=== PATIENT | male | born 1980 | race Caucasian/White ===

== ENCOUNTER → 2019-11-29 15:19 | Outpatient (BNVA) | payer MEDICAID, SELFPAY | PROVIDERS: Family Provider Family Medicine; PCP Family Medicine; Visit Provider Family Medicine | DX: I10 Essential (primary) hypertension (principal) | CPT/HCPCS: 80048 ==

== ENCOUNTER → 2020-03-01 09:15 | Outpatient (BNVA) | payer MEDICAID, SELFPAY | PROVIDERS: Family Provider Family Medicine; PCP Family Medicine; Visit Provider Family Medicine | DX: F33.1 Major depressive disorder, recurrent, moderate (principal); I10 Essential (primary) hypertension; M62.830 Muscle spasm of back | CPT/HCPCS: 80048; 80061; 83721; 84402; 84403 ==

== ENCOUNTER 2020-04-04 11:50 | Outpatient (RCR) | payer MEDICAID, SELFPAY | END 2020-04-22 23:59 | disposition home or self-care (01) | LOC: MPT 11:50 | PROVIDERS: PCP Family Medicine; Referring Provider Family Medicine; Visit Provider Family Medicine | DX: G89.29 Other chronic pain (principal); M54.5 Low back pain; M54.9 Dorsalgia, unspecified | CPT/HCPCS: 97110; 97161; 97530 ==

== ENCOUNTER 2020-04-23 06:00 | Outpatient (RCR) | payer MEDICAID, SELFPAY | END 2020-05-22 23:59 | disposition home or self-care (01) | LOC: MPT 06:00 | PROVIDERS: PCP Family Medicine; Visit Provider Family Medicine | DX: G89.29 Other chronic pain (principal); M54.9 Dorsalgia, unspecified; M54.5 Low back pain | CPT/HCPCS: 97110; 97530 ==

== ENCOUNTER 2020-06-21 17:28 | Emergency (ER) | payer MEDICAID, SELFPAY ==
[2020-06-21 17:50] VITALS: BP 151/98; PULSE 107; RESP 16; TEMP 36.6; O2SAT 96; BMI 37.0
--- NOTE | 2020-06-21 17:55 | ECG_ITS ---
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 Measurements Intervals [place] Rate: 100 P: 51 HI: 142 QRS: 95 QRSD: 77 T: 51 QT: 336 QTc: 434 Interpretive Statements SINUS TACHYCARDIA BORDERLINE RIGHT AXIS DEVIATION [QRS AXIS > 90] POSSIBLE ANTERIOR MYOCARDIAL INFARCTION , OF INDETERMINATE AGE [30 ms Q WAVE IN V3/V4, OR R < 0.2 mV IN V4] No previous ECG available for comparison Electronically Signed On 06-22-2020 16:01:24 CDT by Benjamín Angela M.D. [id number]
--- NOTE | 2020-06-21 18:33 | CTR_ITS ---
PROCEDURE INFORMATION: Exam: CT Head Without Contrast Exam date and time: 06/21/2020 6:42 PM Age: 40 years old Clinical indication: Syncope and collapse; Additional info: Brown/injury TECHNIQUE: Imaging protocol: Computed tomography of the head without contrast. Radiation optimization: All CT scans at this facility use at least one of these dose optimization techniques: automated exposure control; mA and/or kV adjustment per patient size (includes targeted exams where dose is matched to clinical indication); or iterative reconstruction. COMPARISON: No relevant prior studies available. RADIATION DOSE METRICS: Total DLP (mGy-cm): 871.08 FINDINGS: Brain: Normal. No hemorrhage. Unremarkable white matter. No mass effect. Ventricles: Normal. No ventriculomegaly. Bones/joints: Unremarkable. No acute fracture. Sinuses: Visualized sinuses are unremarkable. No fluid levels. Mastoid air cells: Visualized mastoid air cells are well aerated. Soft tissues: Unremarkable. CT/CT head wo con* [id number] IMPRESSION: No acute intracranial abnormality. Radiation Dose CTDIVOL = (mGy): DLP = 871.08 (mGy-cm)
--- NOTE | 2020-06-21 18:37 | W.ED.SYNCOPE ---
HPI - Syncope General: Chief Complaint: Syncope Stated Complaint: syncope 13 hours ago Time Seen by Provider: 06/21/20 18:11 Source: patient Mode of arrival: ambulatory Limitations: no limitations History of Present Illness: HPI narrative: Benjamín is a nice 40-year-old male who comes in with a complaint of passing out. The patient stated that at 4 AM he got up to go to the bathroom tried to have a bowel movement but then got up and walked back to his bedroom and had a syncopal spell. He states he felt odd, diaphoretic and weak before it happened and then fell to the floor. He does not believe that he was out for very long. Because of this he went to [facility] and was evaluated there. He states that he was diagnosed with syncope and discharged home to follow-up but have a Holter monitor. The patient is specifically concerned about a stroke. He is concerned that since he has a headache and he hit his head this could be incidence of stroke. Patient denies any preceding chest pain, shortness of breath, palpitations or abdominal or back pain. Patient states that since this has happened he is felt tired and fatigued throughout the day. Associated symptoms: Deny abdominal pain, chest pain, fever(s), headache(s), lightheadedness, nausea or vertigo Review of Systems Const: Denies: fever(s), chills, body aches, fatigue, malaise or diaphoresis Eyes: Denies: change in vision, blurry vision, blind spots, photophobia, eye discharge or eye redness ENMT: Denies: throat pain, odynophagia, hoarseness, swelling of lips/tongue, oral sores, ear or mastoid pain, ear discharge, change in hearing or nasal discharge Card: Reports: syncope; Denies: chest pain, palpitations, irregular heart rhythm, edema, lightheadedness, pre-syncope, dyspnea on exertion or orthopnea Resp: Denies: dyspnea, productive cough, non-productive cough, wheezing, hemoptysis or chest congestion GI: Denies: abdominal pain, nausea, vomiting, hematemesis, coffee ground emesis, heartburn, diarrhea, constipation, GI cramping, hematochezia or melena : Denies: flank pain, dysuria, urinary frequency, urinary urgency or hematuria Musc: Denies: neck pain, back pain, extremity pain, extremity swelling, joint pain, joint swelling, joint redness, joint warmth or joint stiffness Skin/Breast: Denies: rash, pruritus, erythema, skin tenderness or jaundice Neuro: Denies: headache(s), numbness in extremities, weakness in extremities, sensory changes, lack of coordination, difficulty walking, dizziness, vertigo, confusion, Slurred speech present or seizure-like activity Saeed/Lymph: Denies: easy bruising, easy bleeding, petechiae, purpura or enlarged lymph nodes All/Imm: Denies: urticaria, throat swelling, tongue swelling, facial swelling or acute wheezing PFSH ED PFSH: Medical History Constipation Depression, major, recurrent, moderate Generalized anxiety disorder Hypertension Mild intellectual disabilities Mixed hyperlipidemia Post-traumatic stress disorder, chronic Statin intolerance Social History Smoking and tobacco status: current every day smoker cigarettes Packs smoked per day: 0.5 Quit status (tobacco): not considering quitting Second hand smoke exposure: No Alcohol intake: former Desire information about alcohol rehabilitation?: No Substance/Drug Use: never Desire information about substance/drug rehabilitation?: No History of recent travel: No Current gender identity: Male Physical Exam Const: COMMON NORMALS: no acute distress, patient oriented x3, no limitations, healthy appearing and well nourished GENERAL APPEARANCE: cooperative, well kempt and well developed HENMT: COMMON NORMALS: normocephalic, atraumatic, external ears normal, EAC's normal and Normal external nose present HEAD & SCALP: normal to inspection, normocephalic and atraumatic FACE & SINUS: normal facial exam and face symmetric NOSE: Normal external nose present and Normal nares present EXTERNAL EAR: Yes external ears normal EXTERNAL AUDITORY CANAL: EAC's normal MOUTH: Normal oral and palatal mucosa present, lip normal and tongue normal Eye: COMMON NORMALS: Equal, round and reactive pupils present and conjunctivae normal GENERAL EYE: appearance normal, both eyes and all related structures ALIGNMENT: Yes alignment normal PERIORBITAL: periorbital findings normal EYELID: eyelids normal CONJUNCTIVA: Yes conjunctivae normal SCLERA: sclerae normal PUPIL: Yes Equal, round and reactive pupils present Neck/C-Spine: COMMON NORMALS: full ROM, no lymphadenopathy, supple, no meningeal signs and no JVD GENERAL: Yes normal visual inspection and Yes trachea midline Chest: COMMONS NORMALS: normal inspection of the chest and normal palpation of entire chest wall Resp: COMMON NORMALS: normal respiratory effort, No retractions and No use of accessory muscles EFFORT & INSPECTION: Yes able to speak in complete sentences and Yes symmetric chest movement AUSCULTATION: no crackles, no rales, no rhonchi and no wheezes Cardio: COMMON NORMALS: no JVD, regular rate, regular rhythm, S1 normal heart sound present and S2 normal heart sound present RATE: regular rate RHYTHM: regular rhythm HEART SOUNDS: S1 normal heart sound present, S2 normal heart sound present, no click, no gallops, no murmurs, no rubs and abnormal split S2 GI: COMMON NORMALS: Soft to palpation and No hepatosplenomegaly present PALPATION: Yes Soft to palpation, No Tenderness to palpation present (GI), No Guarding due to palpation present (GI), No Rigid due to palpation, Yes No hepatosplenomegaly present, No Hernia present, No Palpable mass present and No Pulsatile mass present : COMMON NORMALS: Yes no CVA tenderness BLADDER/KIDNEY EXAM: Yes no CVA tenderness Back/Pelvis: COMMON NORMALS: no CVA tenderness, thoracic and lumbar spine normal to inspection, no thoracic nor lumbar tenderness and thoraco-lumbar ROM normal Extremity: COMMON NORMALS: normal to inspection, full ROM, capillary refill normal, no joint enlargement, no clubbing, cyanosis or edema and no calf tenderness Neuro: COMMON NORMALS: patient oriented x3, CN's II-XII intact bilaterally, moves all extremities, no focal motor deficits and no sensory deficits noted MENINGEAL SIGNS: Yes no meningeal signs SPEECH: speech normal Psych: COMMON NORMALS: mental status grossly normal, Normal thought process present, cooperative, normal affect, speech normal and activity/motor behavior normal APPEARANCE: Yes well kempt SPEECH: Yes normal speech THOUGHT PROCESS: Normal thought process present Skin: COMMON NORMALS: no rashes or lesions noted, turgor normal, no jaundice, no petechiae and no mottling GENERAL SKIN EXAM: no rashes or lesions noted and turgor normal Course Vital Signs: Vital signs: Vital Signs Temperature 97.8 F 06/21/20 17:50 Pulse Rate 75 06/21/20 20:44 Respiratory Rate 19 H 06/21/20 20:44 Blood Pressure 144/88 06/21/20 20:44 Pulse Oximetry 95 06/21/20 20:44 MDM - Syncope MDM Narrative: Medical decision making narrative: Benjamín is a nice 40-year-old male who comes in after a syncopal episode at 4 AM. Patient's been mostly asymptomatic throughout the day. He shows no chest pain or shortness of breath. His EKG shows no evidence of Dmnfr-Wepzxbmyt-Ryoie syndrome, obstructed AV pathway, Brugada syndrome, bifascicular blocks, left ventricular hypertrophy to suggest aortic stenosis or hypertrophic obstructive cardiomyopathy, Wrdn-Ozrtjh-Bkmnhl syndrome, epsilon waves or long or short QT syndrome. The patient was most concerned of whether he had had a stroke or not as he hurt his head when he fell. There is no evidence of stroke on his CT and his labs of been unremarkable except for a slightly elevated white count. Patient has no fever, no stiff neck, no cough or shortness of breath denies any abdominal pain or vomiting or diarrhea. Patient denies any urinary symptoms. Patient declines any further care as he knows his CT of his head is normal. He wants to go home. He does agree to return should his symptoms return or he develop any new symptoms. Lab Data: Attestation: I reviewed the patient's lab results. Labs: Lab Results 06/21/20 06/21/20 06/21/20 Range/Units 18:37 18:37 18:37 WBC 16.2 H (4.0-10.0) 10^3/ uL RBC 5.75 H (4.1-5.3) 10^6/u L Hgb 17.4 H (11.7-16.6) g/dL Hct 51.0 (42.0-52.0) % MCV 88.7 (80-94) fL MCH 30.3 (28.0-34.0) pg MCHC 34.1 (30.0-36.0) g/dL RDW 12.4 (12.1-15.1) % Plt Count 328 (130-400) 10^3/c mm MPV 10.0 (7.4-10.4) fL Neut % (Auto) 72.8 % Lymph % (Auto) 23.5 % [place] % (Auto) 2.6 % Eos % (Auto) 0.2 % Baso % (Auto) 0.5 % Neut # (Auto) 11.75 H (1.8-7.7) 10^3/u L Lymph # (Auto) 3.8 (0.8-4.8) 10^3/u L [place] # (Auto) 0.4 (0.2-0.9) 10^3/u L Eos # (Auto) 0.0 (0.0-0.8) 10^3/u L Baso # (Auto) 0.1 (0.0-0.1) 10^3/u L Nucleated RBC % (a uto) 0 % Nucleated RBCs # 0.0 /100WBC Sodium 137 (136-145) mmol/L Potassium 3.5 (3.5-5.1) mmol/L Chloride 99 (98-107) mmol/L Carbon Dioxide 25 (22-29) mmol/L Anion Gap 16.5 (5-19) BUN 12 (6-20) mg/dL Creatinine 1.1 (0.7-1.2) mg/dL GFR Calculation 73.4 L (90-130) mL/min Glucose 137 H (65-115) mg/dL Calculated Osmolal ity 282 L (285-295) mOsm/k g Calcium 10.3 (8.5-10.5) mg/dL Magnesium 2.2 (1.7-2.3) mg/dL Troponin T Baselin e 6 (0-15) ng/L EKG Data^: EKG 1: Attestation: I personally reviewed and interpreted this EKG as follows: EKG interpretation date: 06/21/20 EKG interpretation time: 18:29 Interpretation: Normal sinus rhythm at 100 beats a minute, no blocks, normal intervals. No acute ST-T wave changes. Discharge Plan Discharge Patient Disposition: Home Clinical Impression: Syncope Qualifiers: Syncope type: unspecified Qualified Code(s): R55 - Syncope and collapse Condition: Stable Prescriptions: No Action sertraline [Zoloft] 25 mg tablet 25 mg PO DAILY Qty: 30 RF: 2 potassium chloride 10 mEq tablet extended release 10 meq PO DAILY 30 Days Qty: 30 RF: 2 Aleve 220 mg Tablet 440 mg PO PRN RF: 0 clonidine HCl 0.1 mg tablet 0.2 mg PO BEDTIME RF: 0 hydrochlorothiazide 25 mg tablet 25 mg PO DAILY RF: 0 Discharge Orders: Discharge Order (Routine); Ordered 06/21/20 Ordered By: Rocio Soliman Referrals: Yaerlis Spears MD [Physician] - 1-3 days Elsa Tomlinson MD [Primary Care Provider] - 1-3 days Discharge Diet: Advance as tolerated Discharge Activity: Increase activity as tolerated Patient Instructions: Syncope (ED) Activity Restrictions/Additional Instructions: Please return to the ER immediately for any of the signs or symptoms listed on your discharge instruction sheets, worsening/changing of your symptoms, you are not getting better as quickly as expected, or for ANY other cause or concerns. Be certain to follow-up with Dr. Spears for recheck and for further evaluation and care. Return to the ER if you have another spell or you pass out. Discharge Date/Time: 06/21/20 20:51 Coding Level of Care Code ED Distribution Tech for Chg Fwd Exam Comprehensive
[2020-06-21 18:45] LABS: Basophils # 0.1 10^3/uL (0.0-0.1); Basophils % 0.5 %; Eosinophils % 0.2 %; Hemoglobin 17.4 g/dL (11.7-16.6); Lymphocytes # 3.8 10^3/uL (0.8-4.8); Lymphocytes % 23.5 %; Mean Corpuscular HGB Conc 34.1 g/dL (30.0-36.0); Mean Corpuscular Hemoglobin 30.3 pg (28.0-34.0); Mean Corpuscular Volume 88.7 fL (80-94); Monocytes # 0.4 10^3/uL (0.2-0.9); Monocytes % 2.6 %; Neutrophils # 11.75 10^3/uL (1.8-7.7); Neutrophils % 72.8 %; Nucleated Red Blood Cells % 0 %; Platelet Count 328 10^3/cmm (130-400); Red Blood Count 5.75 10^6/uL (4.1-5.3); Red Cell Distribution Width 12.4 % (12.1-15.1); White Blood Count 16.2 10^3/uL (4.0-10.0)
[2020-06-21 19:00] VITALS: BP 134/95; BP 151/90; BP 153/89; PULSE 101; PULSE 107; PULSE 111; RESP 17; O2SAT 97
[2020-06-21 19:01] LABS: Anion Gap 16.5 (5-19); Blood Urea Nitrogen 12 mg/dL (6-20); Calcium 10.3 mg/dL (8.5-10.5); Carbon Dioxide 25 mmol/L (22-29); Chloride 99 mmol/L (98-107); Glomerular Filtration Rate 73.4 mL/min (90-130); Glucose 137 mg/dL (65-115); Magnesium 2.2 mg/dL (1.7-2.3); Osmolality Calculated 282 mOsm/kg (285-295); Potassium 3.5 mmol/L (3.5-5.1); Sodium 137 mmol/L (136-145)
[2020-06-21 19:05] LABS: Troponin(5th) Baseline 6 ng/L (0-15)
[2020-06-21] MEDS: sodium chloride 0.9% 1,000 ML 999 ML IV (19:08)
[2020-06-21 19:30] VITALS: BP 131/74; PULSE 89; RESP 16; O2SAT 95
[2020-06-21 20:44] VITALS: BP 144/88; PULSE 75; RESP 19; O2SAT 95
== END 2020-06-21 20:51 | disposition home or self-care (01) ==
PROVIDERS: Emergency Medicine; Emergency Provider Emergency Medicine; PCP Family Medicine
DX: R55 Syncope and collapse (principal); I10 Essential (primary) hypertension; E78.2 Mixed hyperlipidemia; F17.210 Nicotine dependence, cigarettes, uncomplicated
CPT/HCPCS: 12345; 70450; 80048; 83735; 84484; 85025; 93005; 96360; 99283; 99284; J7030

== ENCOUNTER 2020-12-06 06:00 | Outpatient (RCR) | payer MEDICAID, SELFPAY | END 2020-12-23 23:59 | disposition home or self-care (01) | LOC: MPT 06:00 | PROVIDERS: PCP Family Medicine; Referring Provider Family Medicine; Visit Provider Family Medicine | DX: M54.9 Dorsalgia, unspecified (principal); G89.29 Other chronic pain | CPT/HCPCS: 97110; 97140; 97161; 97530 ==

== ENCOUNTER 2020-12-24 06:00 | Outpatient (RCR) | payer MEDICAID, SELFPAY | END 2021-01-20 23:59 | disposition home or self-care (01) | LOC: MPT 06:00 | PROVIDERS: PCP Family Medicine; Referring Provider Family Medicine; Visit Provider Family Medicine | DX: M54.9 Dorsalgia, unspecified (principal); G89.29 Other chronic pain | CPT/HCPCS: 97110; 97140; 97530 ==

== ENCOUNTER 2021-02-25 06:00 | Outpatient (RCR) | payer MEDICAID, SELFPAY | END 2021-03-22 23:59 | disposition home or self-care (01) | LOC: MPT 06:00 | PROVIDERS: PCP Family Medicine; Referring Provider Family Medicine; Visit Provider Family Medicine | DX: M54.9 Dorsalgia, unspecified (principal); G89.29 Other chronic pain | CPT/HCPCS: 97110; 97140; 97161; 97530 ==

== ENCOUNTER → 2021-03-05 15:10 | Outpatient (BNVA) | payer MEDICAID, SELFPAY | PROVIDERS: PCP Family Medicine; Visit Provider Family Medicine | DX: E78.2 Mixed hyperlipidemia (principal); I10 Essential (primary) hypertension; R73.9 Hyperglycemia, unspecified; Z13.1 Encounter for screening for diabetes mellitus; F33.1 Major depressive disorder, recurrent, moderate; F41.1 Generalized anxiety disorder; M54.5 Low back pain; E87.6 Hypokalemia | CPT/HCPCS: 80053; 80061; 83036 ==

== ENCOUNTER 2021-04-05 13:44 | Outpatient (CLI) | payer MEDICAID, SELFPAY ==
[2021-03-07 15:52] VITALS: BP 151/94; BMI 36.3
--- NOTE | 2021-04-05 15:15 | MR_ITS ---
WS: [id number] MRI LUMBAR SPINE NONCONTRAST HISTORY: M54.5 - Low back pain COMPARISON: None available. TECHNIQUE: Sagittal and axial multisequence imaging is submitted. Straightening of the normal cervical lordosis. Low signal on the posterior longitudinal ligament exte nding from the C2-3 disc level through C5-6 may be ossification of the posterior longitudinal ligamen t with mild encroachment upon the cervical canal. Mild straightening of the normal thoracic kyphosis. Mild straightening of the normal lumbar lordosis. There are 6 lumbar type vertebral bodies identified after identifying 7 cervical and 12 thoracic vert ebral bodies. The 6 lumbar type vertebral body will be designated as a lumbarized S1 segment. This nu mbering pattern will be important if surgery is contemplated in this patient. Conus terminates normally at L2. L1-L2: Normal. L2-L3: Mild annular disc bulge with a shallow central disc protrusion. Disc protrusion is contacting and causing mild displacement of the ventral thecal sac. No significant foraminal stenosis. L3-L4: Mild annular disc bulging and osteophytic ridging. L4-L5: Small thecal sac with mild facet arthritis. Mild narrowing of the foramen bilaterally. L5-S1: Mild annular disc bulging. Very shallow disc protrusion and annular fissure in the LEFT forame n. Mild bilateral foraminal stenosis. S1-S2: rudimentary disc without stenosis. MR/MR lumbar spine wo con* [id number] IMPRESSION: 1. There are 5 lumbar vertebral bodies. The S1 vertebral body appears lumbariz ed. This numbering pattern will be important if surgery is ever contemplated in this patient. 2. 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 3. Mild bilateral foraminal stenosis at L5-S1. 4. Mild bilateral foraminal stenosis at L4-5. 5. Central disc protrusion contacting the ventral thecal sac at L2-3.
== END 2021-04-05 13:45 | disposition home or self-care (01) ==
LOC: RADSHAW 13:49
PROVIDERS: PCP Family Medicine; Visit Provider Family Medicine
DX: M48.07 Spinal stenosis, lumbosacral region (principal); M48.061 Spinal stenosis, lumbar region without neurogenic claudication; M51.26 Other intervertebral disc displacement, lumbar region
CPT/HCPCS: 72148

== ENCOUNTER → 2021-04-23 10:36 | Outpatient (BNVA) | payer MEDICAID, SELFPAY ==
[2021-03-07 15:52] VITALS: BP 151/94; BMI 36.3
== END ==
PROVIDERS: PCP Family Medicine; Referring Provider Family Medicine; Visit Provider Anesthesiology Pain Medicine
DX: M54.5 Low back pain (principal); F17.210 Nicotine dependence, cigarettes, uncomplicated; Z79.891 Long term (current) use of opiate analgesic
CPT/HCPCS: 99205

== ENCOUNTER → 2021-05-10 12:51 | Outpatient (BNVA) | payer MEDICAID, SELFPAY ==
[2021-03-07 15:52] VITALS: BP 151/94; BMI 36.3
== END ==
PROVIDERS: PCP Family Medicine; Visit Provider Anesthesiology Pain Medicine
DX: M54.5 Low back pain (principal); F17.210 Nicotine dependence, cigarettes, uncomplicated
CPT/HCPCS: 62323; J1040; J3490

== ENCOUNTER → 2021-05-24 09:35 | Outpatient (BNVA) | payer MEDICAID, SELFPAY ==
[2021-05-10 13:46] VITALS: BP 151/94; BMI 36.3
== END ==
PROVIDERS: PCP Family Medicine; Visit Provider Anesthesiology Pain Medicine
DX: M51.26 Other intervertebral disc displacement, lumbar region (principal); F17.210 Nicotine dependence, cigarettes, uncomplicated
CPT/HCPCS: 99212; 99213

== ENCOUNTER → 2021-07-12 17:41 | Outpatient (BNVA) | payer MEDICAID, SELFPAY ==
[2021-05-10 13:46] VITALS: BP 151/94; BMI 36.3
== END ==
PROVIDERS: PCP Family Medicine; Visit Provider Nurse Practitioner Family
DX: Z20.822 Contact with and (suspected) exposure to COVID-19 (principal); J06.9 Acute upper respiratory infection, unspecified
CPT/HCPCS: 87635

== ENCOUNTER → 2021-07-23 14:54 | Outpatient (BNVA) | payer MEDICAID, SELFPAY ==
[2021-05-10 13:46] VITALS: BP 151/94; BMI 36.3
== END ==
PROVIDERS: PCP Family Medicine; Visit Provider Family Medicine
DX: I10 Essential (primary) hypertension (principal); R73.03 Prediabetes; J30.9 Allergic rhinitis, unspecified; E87.6 Hypokalemia; J30.1 Allergic rhinitis due to pollen; J30.2 Other seasonal allergic rhinitis; F33.1 Major depressive disorder, recurrent, moderate; F41.1 Generalized anxiety disorder; R53.82 Chronic fatigue, unspecified
CPT/HCPCS: 80053; 82607; 82652; 83036; 84443; 85025

== ENCOUNTER → 2021-09-06 09:17 | Outpatient (BNVA) | payer MEDICAID, SELFPAY ==
[2021-05-10 13:46] VITALS: BP 151/94; BMI 36.3
== END ==
PROVIDERS: PCP Family Medicine; Visit Provider Anesthesiology Pain Medicine
DX: G89.29 Other chronic pain (principal); M51.26 Other intervertebral disc displacement, lumbar region; F41.1 Generalized anxiety disorder; F33.1 Major depressive disorder, recurrent, moderate; I10 Essential (primary) hypertension
CPT/HCPCS: 99213

== ENCOUNTER → 2021-09-23 13:03 | Outpatient (BNVA) | payer MEDICAID, SELFPAY ==
[2021-05-10 13:46] VITALS: BP 151/94; BMI 36.3
== END ==
PROVIDERS: PCP Family Medicine; Visit Provider Anesthesiology Pain Medicine
DX: M51.16 Intervertebral disc disorders with radiculopathy, lumbar region (principal); F17.210 Nicotine dependence, cigarettes, uncomplicated
CPT/HCPCS: 62323; J1030; J3490

== ENCOUNTER → 2022-02-05 11:21 | Outpatient (BNVA) | payer MEDICAID, SELFPAY ==
[2021-05-10 13:46] VITALS: BP 151/94; BMI 36.3
== END ==
PROVIDERS: PCP Family Medicine; Visit Provider Family Medicine
DX: I10 Essential (primary) hypertension (principal); F33.1 Major depressive disorder, recurrent, moderate; F41.1 Generalized anxiety disorder; J30.9 Allergic rhinitis, unspecified; E78.2 Mixed hyperlipidemia; R73.03 Prediabetes; J30.1 Allergic rhinitis due to pollen; J30.2 Other seasonal allergic rhinitis; M51.26 Other intervertebral disc displacement, lumbar region
CPT/HCPCS: 80053; 80061; 83036; 85025

== ENCOUNTER → 2022-04-28 12:05 | Outpatient (BNVA) | payer MEDICAID, SELFPAY ==
[2021-05-10 13:46] VITALS: BP 151/94; BMI 36.3
== END ==
PROVIDERS: PCP Family Medicine; Visit Provider Emergency Medicine
DX: Z20.822 Contact with and (suspected) exposure to COVID-19 (principal); B34.9 Viral infection, unspecified
CPT/HCPCS: 87071; 87400; 87635; 87880

== ENCOUNTER 2022-05-04 18:59 | Emergency (ER) | payer MEDICAID, SELFPAY ==
[2021-05-10 13:46] VITALS: BP 151/94; BMI 36.3
--- NOTE | 2022-05-04 19:03 | ECG_ITS ---
[facility] Test Date: 2022-05-04 Pat Name: Benjamín Salgado Department: Room: Gender: Male [employer] Man: : 1980 Requested By: Roni Ramirez Order Number: [id number] Azael MD: Zach Montelongo M.D. Measurements Intervals [place] Rate: 93 P: 55 [place]: 136 QRS: 81 QRSD: 81 T: 45 QT: 325 QTc: 404 Interpretive Statements SINUS RHYTHM POSSIBLE LEFT ATRIAL ENLARGEMENT [-0.1mV P-WAVE IN V1/V2] Compared to ECG 06/21/2020 18:29:36 Sinus tachycardia no longer present Myocardial infarct finding no longer present Electronically Signed On 05-05-2022 19:38:19 CDT by Zach Montelongo M.D. [id number] f
--- NOTE | 2022-05-04 19:03 | XRR_ITS ---
PROCEDURE INFORMATION: Exam: XR Chest Exam date and time: 05/04/2022 7:23 PM Age: 42 years old Clinical indication: Sternal or substernal pain; Additional info: Cp TECHNIQUE: Imaging protocol: XR of the chest. Views: 1 view. COMPARISON: No relevant prior studies available. FINDINGS: Lungs: Lungs are clear bilaterally. Pleural spaces: No pleural effusion. No pneumothorax. Heart/Mediastinum: The cardiac silhouette and mediastinal contours are unremarkable. Bones/joints: Unremarkable for age. XR/XR chest 1V portable [id number] IMPRESSION: No acute cardiopulmonary process.
[2022-05-04 19:08] VITALS: BP 163/94; PULSE 99; RESP 18; TEMP 36.9; O2SAT 97; BMI 33.6
--- NOTE | 2022-05-04 19:32 | W.ED.CHESTPA ---
HPI - Chest Pain General: Chief Complaint: Chest Pain Stated Complaint: CP Time Seen by Provider: 05/04/22 19:13 Source: patient Mode of arrival: ambulatory Limitations: no limitations History of Present Illness: 42-year-old male who states has been having some sharp chest pain for last week. States its been fairly constant wax and wane states pain currently is a 2 out of 10 denies any shortness of breath denies any nausea or diaphoresis he has a history of high blood pressure and is a smoker. No history of heart disease. Denies any worsening improving factors. Associated symptoms: Deny abdominal pain, dyspnea, fever(s), nausea or vomiting Review of Systems Const: Denies: fever(s), chills, body aches or change in appetite Eyes: Denies: blurry vision or eye discomfort ENMT: Denies: throat pain or dental pain Card: Reports: chest pain Resp: Denies: dyspnea GI: Denies: abdominal pain, nausea, vomiting or diarrhea : Denies: dysuria Musc: Denies: neck pain or back pain Skin/Breast: Denies: rash Neuro: Denies: headache(s) Psych: Denies: depression Saeed/Lymph: Denies: easy bruising All/Imm: Denies: urticaria PFSH ED PFSH: Medical History Constipation Depression, major, recurrent, moderate Generalized anxiety disorder Hypersomnia Hypertension Insomnia Mild intellectual disabilities Mixed hyperlipidemia Post-traumatic stress disorder, chronic Prediabetes Psychiatric care Smoking Snoring Statin intolerance Social History Smoking and tobacco status: current every day smoker cigarettes Packs smoked per day: 0.5 Years cigarettes smoked: 21 Quit status (tobacco): has tried quititng Second hand smoke exposure: Yes Alcohol intake: current Alcohol intake frequency: holidays/special occasions only Desire information about alcohol rehabilitation?: No Desire information about substance/drug rehabilitation?: No Adopted: No Caregiver/support person: No Lives independently: Yes Household members: significant other Housing: House Marital status: Marital status details: been 3 times, been with current partner 6 years Number of children: 4 Number of grandchildren: 0 Highest education level completed: 9th Grade service: No Current occupational status: disabled Current occupational exposures/hazards: No Pets and animals: Yes (dog named peanut) Pets & animals: dog(s) History of recent travel: No Leisure activites: games and other Leisure activities details: watch TV Sexually active: Yes Current gender identity: Male Shivani/Synagogue: None Special shivani needs: No Agree to transfusion: Yes Financial difficulty paying for basics: Not Very Hard Physical Exam Const: COMMON NORMALS: no acute distress, patient oriented x3 and healthy appearing HENMT: COMMON NORMALS: normocephalic and atraumatic HEAD & SCALP: normocephalic and atraumatic Eye: COMMON NORMALS: Equal, round and reactive pupils present and EOMs intact bilaterally PUPIL: Yes Equal, round and reactive pupils present Neck/C-Spine: COMMON NORMALS: full ROM and supple Chest: COMMONS NORMALS: normal inspection of the chest and normal palpation of entire chest wall Resp: COMMON NORMALS: normal respiratory effort, No retractions, No use of accessory muscles and clear to auscultation bilaterally AUSCULTATION: clear to auscultation bilaterally Cardio: COMMON NORMALS: regular rate, regular rhythm and No murmurs present (Cardio) RATE: regular rate RHYTHM: regular rhythm GI: COMMON NORMALS: Normal to inspection, nondistended, normoactive bowel sounds present, Soft to palpation, non-tender and no masses PALPATION: Yes Soft to palpation Extremity: COMMON NORMALS: normal to inspection and full ROM Neuro: COMMON NORMALS: patient oriented x3, moves all extremities and no focal motor deficits Psych: COMMON NORMALS: mental status grossly normal, Normal thought process present and cooperative THOUGHT PROCESS: Normal thought process present Skin: COMMON NORMALS: no rashes or lesions noted and no wounds GENERAL SKIN EXAM: no rashes or lesions noted Course Vital Signs: Vital signs: Vital Signs Temperature 98.4 F 05/04/22 19:08 Pulse Rate 97 05/04/22 19:51 Respiratory Rate 18 05/04/22 19:51 Blood Pressure 151/98 05/04/22 19:51 Pulse Oximetry 97 05/04/22 19:51 MDM - Chest Pain Medical Decision Making Patient presents for chest pains atypical in nature has been going on for little over a week had to have some anxiety his troponin here is negative x-ray and EKG are normal as well he is hypertensive he takes meds at home did give him hydralazine here he is to follow-up with his PCP likely needs an outpatient stress test inform if he has any worsening pain he is return to the ER he understands and agrees to plan. He has no signs of dissection or pulmonary embolism. Lab Data : 05/04/22 20:00 05/04/22 20:00 Radiology Impressions Chest X-Ray 05/04/22 19:03 IMPRESSION: No acute cardiopulmonary process. Laboratory Results WBC 15.3 10^3/uL (4.0-10.0) H 05/04/22 20:00 RBC 5.94 10^6/uL (4.1-5.3) H 05/04/22 20:00 Hgb 18.0 g/dL (11.7-16.6) H 05/04/22 20:00 Hct 51.7 % (42.0-52.0) 05/04/22 20:00 MCV 87.0 fl (80-94) 05/04/22 20:00 MCH 30.3 pg (28.0-34.0) 05/04/22 20:00 MCHC 34.8 g/dL (30.0-36.0) 05/04/22 20:00 RDW 12.6 % (12.1-15.1) 05/04/22 20:00 Plt Count 303 10^3/cmm (130-400) 05/04/22 20:00 MPV 9.9 fL (7.4-10.4) 05/04/22 20:00 Neut % (Auto) 61.1 % 05/04/22 20:00 Lymph % (Auto) 32.6 % 05/04/22 20:00 Runnels % (Auto) 3.9 % 05/04/22 20:00 Eos % (Auto) 1.3 % 05/04/22 20:00 Baso % (Auto) 0.6 % 05/04/22 20:00 Neut # (Auto) 9.35 10^3/uL (1.8-7.7) H 05/04/22 20:00 Lymph # (Auto) 5.0 10^3/uL (0.8-4.8) H 05/04/22 20:00 Runnels # (Auto) 0.6 10^3/uL (0.2-0.9) 05/04/22 20:00 Eos # (Auto) 0.2 10^3/uL (0.0-0.8) 05/04/22 20:00 Baso # (Auto) 0.1 10^3/uL (0.0-0.1) 05/04/22 20:00 Nucleated RBC % (auto) 0 % 05/04/22 20:00 Nucleated RBCs # 0.0 /100WBC 05/04/22 20:00 Sodium 138 mmol/L (136-145) 05/04/22 20:00 Potassium 3.6 mmol/L (3.5-5.1) 05/04/22 20:00 Chloride 102 mmol/L (98-107) 05/04/22 20:00 Carbon Dioxide 24 mmol/L (22-29) 05/04/22 20:00 Anion Gap 15.6 (5-19) 05/04/22 20:00 BUN 12 mg/dL (6-20) 05/04/22 20:00 Creatinine 1.0 mg/dL (0.7-1.2) 05/04/22 20:00 GFR Calculation 81.2 mL/min (90-130) L 05/04/22 20:00 Glucose 95 mg/dL (65-115) 05/04/22 20:00 Calculated Osmolality 286 mOsm/kg (285-295) 05/04/22 20:00 Calcium 9.1 mg/dL (8.5-10.5) 05/04/22 20:00 Total Bilirubin 0.4 mg/dL (0.15-1.2) 05/04/22 20:00 AST 23 U/L (0-40) 05/04/22 20:00 ALT 29 U/L (0-41) 05/04/22 20:00 Alkaline Phosphatase 106 IU/L (40-130) 05/04/22 20:00 Troponin T Baseline 8 ng/L (0-15) 05/04/22 20:00 Total Protein 7.6 g/dL (6.6-8.7) 05/04/22 20:00 Albumin 4.4 g/dL (3.5-5.2) 05/04/22 20:00 Globulin 3.2 g/dL (1.3-4.6) 05/04/22 20:00 Lipase 40 U/L (13-60) 05/04/22 20:00 EKG Data EKG 1: I personally reviewed and interpreted this EKG as follows: EKG interpretation date: 05/04/22 EKG interpretation time: 19:04 Interpretation: nsr hr [address] or t wave abnormalities qrs 81 qtc 375 Discharge Plan Discharge Patient Disposition: Home Clinical Impression: Chest pain Qualifiers: Chest pain type: unspecified Qualified Code(s): R07.9 - Chest pain, unspecified Condition: Stable Prescriptions: No Action citalopram 10 mg tablet See Rx Instructions .ROUTE .COMPLEX 90 Days Qty: 90 0RF Dose Instruction: Take 1 tablet by mouth once daily Rx Instructions: Take 1 tablet by mouth once daily hydroxyzine HCl 25 mg tablet 25 mg PO TID PRN (Reason: anxiety) 90 Days Qty: 90 0RF losartan 50 mg tablet 50 mg PO DAILY 90 Days Qty: 90 1RF cetirizine [Zyrtec] 10 mg tablet 10 mg PO DAILY 90 Days Qty: 90 1RF tizanidine 4 mg tablet 4 mg PO BID PRN (Reason: muscle spasticity) Qty: 60 1RF ibuprofen 600 mg tablet 600 mg PO Q8H PRN (Reason: pain) Qty: 30 0RF triamcinolone acetonide 0.1 % cream 1 applic topical BID Qty: 15 1RF clonidine HCl 0.1 mg tablet 0.1 mg PO .at bed 90 Days 0RF amlodipine 5 mg tablet 5 mg PO DAILY Qty: 30 2RF Discharge Orders: Discharge ED (Routine); Ordered 05/04/22 Ordered By: Roni Ramirez Referrals: Elsa Tomlinson MD [Primary Care Provider] - Discharge Diet: Advance as tolerated Discharge Activity: Resume usual activity Patient Instructions: Chest Pain (ED) Coding Level of Care Code ED Otr Tanker Truck Driver for Chg Fwd Exam Comprehensive
[2022-05-04 19:51] VITALS: BP 151/98; PULSE 97; RESP 18; O2SAT 97
[2022-05-04 20:08] LABS: Basophils # 0.1 10^3/uL (0.0-0.1); Basophils % 0.6 %; Eosinophils # 0.2 10^3/uL (0.0-0.8); Eosinophils % 1.3 %; Hematocrit 51.7 % (42.0-52.0); Lymphocytes % 32.6 %; Mean Corpuscular HGB Conc 34.8 g/dL (30.0-36.0); Mean Corpuscular Hemoglobin 30.3 pg (28.0-34.0); Mean Platelet Volume 9.9 fL (7.4-10.4); Monocytes # 0.6 10^3/uL (0.2-0.9); Monocytes % 3.9 %; Neutrophils # 9.35 10^3/uL (1.8-7.7); Neutrophils % 61.1 %; Nucleated Red Blood Cells % 0 %; Platelet Count 303 10^3/cmm (130-400); Red Blood Count 5.94 10^6/uL (4.1-5.3); Red Cell Distribution Width 12.6 % (12.1-15.1); White Blood Count 15.3 10^3/uL (4.0-10.0)
[2022-05-04] MEDS: sodium chloride 0.9% 1,000 ML 999 ML IV (20:21)
[2022-05-04 20:25] LABS: Alanine Aminotransferase 29 U/L (0-41); Albumin Level 4.4 g/dL (3.5-5.2); Alkaline Phosphatase 106 IU/L (40-130); Anion Gap 15.6 (5-19); Aspartate Amino Transferase 23 U/L (0-40); Blood Urea Nitrogen 12 mg/dL (6-20); Calcium 9.1 mg/dL (8.5-10.5); Carbon Dioxide 24 mmol/L (22-29); Chloride 102 mmol/L (98-107); Globulin 3.2 g/dL (1.3-4.6); Glomerular Filtration Rate 81.2 mL/min (90-130); Glucose 95 mg/dL (65-115); Lipase 40 U/L (13-60); Osmolality Calculated 286 mOsm/kg (285-295); Potassium 3.6 mmol/L (3.5-5.1); Sodium 138 mmol/L (136-145); Total Bilirubin 0.4 mg/dL (0.15-1.2); Total Protein 7.6 g/dL (6.6-8.7)
[2022-05-04 20:26] LABS: Troponin(5th) Baseline 8 ng/L (0-15)
[2022-05-04] MEDS: hyDRALAzine 20 mg/mL INJ 1 mL 10 MG IVP (20:50)
[2022-05-04 21:18] VITALS: BP 161/94; PULSE 86; RESP 16; O2SAT 98
== END 2022-05-04 21:06 | disposition home or self-care (01) ==
PROVIDERS: Emergency Provider Emergency Medicine; PCP Family Medicine
DX: R07.9 Chest pain, unspecified (principal); F41.9 Anxiety disorder, unspecified; I10 Essential (primary) hypertension; F17.210 Nicotine dependence, cigarettes, uncomplicated
CPT/HCPCS: 71045; 80053; 83690; 84484; 85025; 93005; 96374; 99284; J0360; J7030

== ENCOUNTER 2022-07-30 12:25 | Emergency (ER) | payer MEDICAID, SELFPAY ==
[2021-05-10 13:46] VITALS: BP 151/94; BMI 36.3
[2022-07-30 12:37] VITALS: BP 148/94; PULSE 69; RESP 16; TEMP 36.7; O2SAT 96
--- NOTE | 2022-07-30 12:49 | W.ED.GENADLT ---
HPI - General Adult General: Chief complaint: General Medical Stated complaint: Bloodpressure Time Seen by Provider: 07/30/22 12:48 History of Present Illness: Patient is a 42-year-old male comes to the ED with elevated blood pressure. Patient was seen at clinic in [place] for same complaint yesterday July 29. He was told to continue taking his propranolol twice daily, losartan and clonidine and to monitor his blood pressures for the next week and follow-up with Dr. Tomlinson to reassess blood pressure medications. Patient has a history of anxiety. He states that he is constantly worried about his blood pressure and checks it multiple times throughout the day. He has not missed any doses of his losartan or clonidine. Today he had a blood pressure of 158/110 at home and decided to come here to the ED to get evaluated. Denies any chest pain or shortness of breath. Associated symptoms: Deny chest pain, dyspnea, headache(s), nausea, rash, palpitations or vomiting Review of Systems Const: Denies: fever(s), chills or fatigue Eyes: Denies: change in vision or eye discomfort ENMT: Denies: throat pain, odynophagia, nasal discharge or nasal congestion Card: Denies: chest pain, palpitations, edema, swelling of feet/ankles, dyspnea on exertion or orthopnea Resp: Denies: dyspnea, productive cough or non-productive cough GI: Denies: abdominal pain, nausea, vomiting, diarrhea, constipation or hematochezia : Denies: flank pain, difficulty urinating, dysuria or hematuria Musc: Denies: neck pain, back pain or extremity swelling Skin/Breast: Denies: rash or new lesions Neuro: Denies: headache(s), numbness in extremities or weakness in extremities PFSH ED PFSH: Medical History Constipation Depression, major, recurrent, moderate Generalized anxiety disorder Hypersomnia Hypertension Insomnia Mild intellectual disabilities Mixed hyperlipidemia Post-traumatic stress disorder, chronic Prediabetes Psychiatric care Smoking Snoring Statin intolerance Social History Smoking and tobacco status: current every day smoker cigarettes Packs smoked per day: 0.5 Years cigarettes smoked: 21 Quit status (tobacco): has tried quititng Second hand smoke exposure: Yes Alcohol intake: current Alcohol intake frequency: holidays/special occasions only Desire information about alcohol rehabilitation?: No Desire information about substance/drug rehabilitation?: No Adopted: No Caregiver/support person: No Lives independently: Yes Household members: significant other Housing: House Marital status: Marital status details: been 3 times, been with current partner 6 years Number of children: 4 Number of grandchildren: 0 Highest education level completed: 9th Grade service: No Current occupational status: disabled Current occupational exposures/hazards: No Pets and animals: Yes (dog named peanut) Pets & animals: dog(s) History of recent travel: No Leisure activites: games and other Leisure activities details: watch TV Sexually active: Yes Current gender identity: Male Shivani/Scientology: None Special shivani needs: No Agree to transfusion: Yes Financial difficulty paying for basics: Not Very Hard Physical Exam Const: COMMON NORMALS: no acute distress and patient oriented x3 GENERAL APPEARANCE: cooperative and comfortable HENMT: COMMON NORMALS: normocephalic HEAD & SCALP: normocephalic MOUTH: Normal oral and palatal mucosa present THROAT: posterior oropharynx normal and uvula midline Eye: COMMON NORMALS: Equal, round and reactive pupils present, EOMs intact bilaterally and conjunctivae normal CONJUNCTIVA: Yes conjunctivae normal PUPIL: Yes Equal, round and reactive pupils present Neck/C-Spine: COMMON NORMALS: supple GENERAL: Yes normal visual inspection Resp: COMMON NORMALS: normal respiratory effort, No retractions, No use of accessory muscles and clear to auscultation bilaterally AUSCULTATION: clear to auscultation bilaterally Cardio: COMMON NORMALS: regular rate, regular rhythm, S1 normal heart sound present, S2 normal heart sound present, No gallops present (Cardio), No clicks present (Cardio), No murmurs present (Cardio) and Peripheral pulses 2+ throughout RATE: regular rate RHYTHM: regular rhythm HEART SOUNDS: S1 normal heart sound present and S2 normal heart sound present PERIPHERAL PULSES: Peripheral pulses 2+ throughout GI: COMMON NORMALS: Normal to inspection, nondistended, normoactive bowel sounds present, Soft to palpation, non-tender and no masses PALPATION: Yes Soft to palpation : COMMON NORMALS: Yes no CVA tenderness BLADDER/KIDNEY EXAM: Yes no CVA tenderness Back/Pelvis: COMMON NORMALS: no CVA tenderness Extremity: COMMON NORMALS: normal to inspection Neuro: COMMON NORMALS: patient oriented x3, CN's II-XII intact bilaterally, moves all extremities, no focal motor deficits, no sensory deficits noted and gait normal SPEECH: speech normal GAIT: Yes Normal gait present MOTOR EXAM: 5/5 motor strength present throughout Skin: GENERAL SKIN EXAM: dry skin Course Vital Signs: Vital signs: Vital Signs Temperature 98.1 F 07/30/22 12:37 Pulse Rate 65 07/30/22 13:14 Respiratory Rate 16 07/30/22 13:14 Blood Pressure 147/98 07/30/22 13:14 Pulse Oximetry 97 07/30/22 13:14 Oxygen Delivery Me thod 07/30/22 13:14 MDM - General Adult Medical Decision Making Patient is a 42-year-old male comes to the ED with elevated blood pressures. Patient has hypertension and currently takes propranolol for anxiety and losartan. Patient says he is very anxious and stressed about his blood pressure and checks it constantly throughout the day. Denies any current symptoms. Vitals are stable and patient's blood pressure is 148/94 here in the ED. Exam is benign. Patient was stable for discharge home and told to continue taking his blood pressure medications as prescribed. He was told to check his blood pressures daily and keep a log of the results. Follow-up with PCP within the next week for reevaluation and to discuss possible blood pressure medication management or changes. Return to ED precautions given. Patient understood and agreed with plan. Discharge Plan Discharge Patient Disposition: Home Clinical Impression: Hypertension Qualifiers: Hypertension type: unspecified Qualified Code(s): I10 - Essential (primary) hypertension Condition: Stable Prescriptions: No Action citalopram 10 mg tablet See Rx Instructions .ROUTE .COMPLEX 90 Days Qty: 90 0RF Dose Instruction: Take 1 tablet by mouth once daily Rx Instructions: Take 1 tablet by mouth once daily hydroxyzine HCl 25 mg tablet 25 mg PO TID PRN (Reason: anxiety) 90 Days Qty: 90 0RF cetirizine [Zyrtec] 10 mg tablet 10 mg PO DAILY 90 Days Qty: 90 1RF propranolol 10 mg tablet 10 mg PO TID PRN (Reason: anxiety) Qty: 90 0RF ibuprofen 600 mg tablet 600 mg PO Q8H PRN (Reason: pain) Qty: 30 0RF losartan 100 mg tablet 100 mg PO DAILY 90 Days Qty: 90 1RF triamcinolone acetonide 0.1 % cream 1 applic topical BID Qty: 15 1RF clonidine HCl 0.1 mg tablet 0.1 mg PO .at bed 90 Days 0RF pantoprazole 40 mg tablet,delayed release (DR/EC) 40 mg PO DAILY 90 Days Qty: 90 1RF Discharge Orders: Discharge ED (Routine); Ordered 07/30/22 Ordered By: Jeyson Mishra Referrals: Elsa Tomlinson MD [Primary Care Provider] - Discharge Diet: Regular Discharge Activity: Increase activity as tolerated Patient Instructions: Hypertension (ED) Activity Restrictions/Additional Instructions: Follow-up with medical provider as directed in the next week for reevaluation. Continue checking your blood pressures 2-3 times a day at home and keep a log of blood pressures to show your PCP at your next visit. Continue taking all home medications as prescribed. Return to the ER or your medical provider if condition worsens. Please read and understand discharge instructions. Thank you for choosing [facility] for your healthcare needs today. Please realize this is an emergency room and that we are providing you with a medical screening exam and this may not be complete and all inclusive of all the testing and or work up that you may need to determine your ailment or severity of your illness. It is very important that you follow up as instructed or that you return to the Emergency Department should you have concerns or if your condition changes or worsens in any way. Coding Level of Care Code ED Tube Teller for Sundeep Ramirez Exam Comprehensive
[2022-07-30 13:14] VITALS: BP 147/98; PULSE 65; RESP 16; O2SAT 97
== END 2022-07-30 13:28 | disposition home or self-care (01) ==
PROVIDERS: Emergency Provider Physician Assistant; PCP Family Medicine
DX: I10 Essential (primary) hypertension (principal)
CPT/HCPCS: 99282